=== PATIENT | male | born 1990 | race American Indian/Alaskan Native ===

== ENCOUNTER → 2018-09-03 | Emergency (ER) | payer MEDICAID, OTHER ==
[~2018-09-03] VITALS: Ht 172.7 cm; Wt 89.2 kg
[~2018-09-03] MED LIST: CEPH250T PO; DOXY-200 PO; TETanus/Pertussis (Acell)/Diphther VAC/PF (Tdap-Adult) 0.5ml syringe IM ONE; ketorolac tromethamine 15mg/ml inj. IM ONE
[2018-09-03 18:12] VITALS: BP 130/78
== END | disposition home or self-care (01) ==
LOC: ER 17:30
DX: S41.131A Puncture wound without foreign body of right upper arm, initial encounter (principal); M25.511 Pain in right shoulder; W18.30XA Fall on same level, unspecified, initial encounter; Y93.89 Activity, other specified; Y92.511 Restaurant or cafe as the place of occurrence of the external cause; Y99.8 Other external cause status
CPT/HCPCS: 90471; 90715; 99283; J1885